=== PATIENT | female | born 1990 | race Asian ===

== ENCOUNTER 2018-08-19 00:32 | Emergency (ER) | payer BC ==
[~2018-08-19] VITALS: Ht 154.9 cm; Wt 71.2 kg
[2018-08-19 00:39] VITALS: Ht 154.9 cm; Wt 71.2 kg
[2018-08-19 02:10] VITALS: BP 112/76
== END 2018-08-19 02:10 | disposition home or self-care (01) ==
LOC: ED 00:32
DX: S50.12XA Contusion of left forearm, initial encounter (principal); S29.9XXA Unspecified injury of thorax, initial encounter; V49.9XXA Car occupant (driver) (passenger) injured in unspecified traffic accident, initial encounter; Y93.89 Activity, other specified; Y92.89 Other specified places as the place of occurrence of the external cause; Y99.8 Other external cause status